=== PATIENT | female | born 1995 | race African-American/Black ===

== ENCOUNTER 2021-06-14 17:40 | Emergency (ER) | payer MEDICAID ==
[~2021-06-14] VITALS: Ht 170.2 cm; Wt 77.0 kg
[2021-06-14] MEDS ORDERED: HYDROCODONE/ACETAMINOPHEN 5-325 MG TABLET PO ONE (19:00)
[2021-06-14 19:18] LABS: BASOPHILS % (AUTO) 0.2 % (0.0-2.0); EOSINOPHILS % (AUTO) 0.3 % (1.0-6.0); HEMATOCRIT 33.2 % (36-46); HEMOGLOBIN 10.6 g/dL (12.0-16.0); LYMPHOCYTES # (AUTO) 0.7 K/uL (1.0-4.8); LYMPHOCYTES % (AUTO) 6.3 % (22.0-44.0); MEAN CORPUSCULAR HGB CONC 31.8 G/dL (31.0-37.0); MEAN CORPUSCULAR VOLUME 69 fL (80-100); MONOCYTES # (AUTO) 0.5 K/uL (0.1-1.0); MONOCYTES % (AUTO) 4.7 % (2.0-9.0); NEUTROPHILS # (AUTO) 9.8 K/uL (1.8-7.7); PLATELET COUNT (AUTO) 253 K/uL (150-450); RED BLOOD CELL COUNT(AUTO) 4.81 MIL/uL (4.00-5.20)
[2021-06-14 19:20] LABS: NEUTROPHILS % (AUTO) 88.5 % (40.0-70.0)
[2021-06-14 22:00] VITALS: BP 119/63
== END 2021-06-15 | disposition left against medical advice (07) ==
LOC: EMS 17:40
DX: R10.32 Left lower quadrant pain (principal); R10.31 Right lower quadrant pain
CPT/HCPCS: 76801; 76817; 84702; 85025; 99284